=== PATIENT | female | born 1940 | race African-American/Black ===

== ENCOUNTER 2018-05-20 08:20 | Inpatient (IN) | payer OTHER, MEDICAID ==
[~2018-05-20] VITALS: Ht 162.6 cm; Wt 54.9 kg
[2018-05-20 09:11] LABS: *AMPHETAMINES SCREEN URINE NEGATIVE (NEGATIVE); *BENZODIAZEPINES SCREEN URINE NEGATIVE (NEGATIVE); *COCAINE SCREEN URINE NEGATIVE (NEGATIVE); OPIATES URINE SCREEN NEGATIVE (NEGATIVE); PHENCYCLIDINE URINE SCREEN NEGATIVE (NEGATIVE)
[2018-05-20 09:12] LABS: METHADONE URINE SCREEN NEGATIVE (NEGATIVE)
[2018-05-20 09:24] LABS: BASOPHILS % 0.4 % (0.0-2.0); EOSINOPHILS % 2.6 % (0.0-5.0); HEMATOCRIT. 30.5 % (36.0-48.0); HEMOGLOBIN. 10.3 g/dL (12.0-16.0); LYMPHOCYTES % 10.6 % (20.0-50.0); MEAN CORPUSCULAR VOLUME 88.9 fL (81.0-99.0); MEAN PLATELET VOLUME 8.7 fl (7.4-10.4); MONOCYTES % 7.8 % (2.0-8.0); NEUTROPHILS % 78.6 % (40.0-76.0); PLATELET 145 x1000/uL (130-400); RED BLOOD CELL COUNT 3.43 mill/uL (4.2-5.4)
[2018-05-20 09:25] LABS: CANNABINOID URINE SCREEN NEGATIVE (NEGATIVE)
[2018-05-20 09:28] LABS: CHLORIDE 106 mEq/L (98-107)
[2018-05-20 09:28] LABS: *BARBITURATES SCREEN URINE NEGATIVE (NEGATIVE)
[2018-05-20 09:31] LABS: PARTIAL THROMBOPLASTIN TIME 24.7 sec (23.4-31.0); PROTHROMBIN TIME 10.7 sec (9.4-11.6)
[2018-05-20 09:32] LABS: ETHANOL BLOOD < 10 mg/dL
[2018-05-20] MEDS ORDERED: DEXTROSE 50% WATER 50ML SYRINGE IV PRN (13:15)
[2018-05-20] MEDS: BLOOD SUGAR DIAGNOSTIC STRIP TEST SCH ×3 (13:16→20:50)
[2018-05-20] MEDS: INSULIN LISPRO 100 UNITS/ML SUBCUT SCH ×3 (13:20→20:49)
[2018-05-20 14:02] VITALS: BP 124/51
[2018-05-20] MEDS ORDERED: GLIP10TA10 PO (14:13)
[2018-05-20] MEDS ORDERED: ACAR25TA8 PO (14:13)
[2018-05-20] MEDS ORDERED: FURO40TA5 PO (14:13)
[2018-05-20] MEDS ORDERED: LOSA25TA12 PO (14:29)
[2018-05-20] MEDS ORDERED: MULT-1195 PO (14:29)
[2018-05-20] MEDS ORDERED: HYDR-4134 PO (14:29)
[2018-05-20] MEDS ORDERED: SPIR25TA6 PO (14:29)
[2018-05-20] MEDS ORDERED: SIMV40TA5 PO (14:29)
[2018-05-20] MEDS ORDERED: HYDR10SY15 PO (14:29)
[2018-05-20] MEDS ORDERED: CARV25TA47 PO (14:29)
[2018-05-20] MEDS ORDERED: CLOP75TA33 PO (14:29)
[2018-05-20] MEDS ORDERED: HYDROCODONE/ACETAMINOPHEN 10/325MG TABLET PO PRN (14:30)
[2018-05-20] MEDS ORDERED: IPRATROPIUM/ALBUTEROL 0.5-3(2.5)MG/3ML NEB INH PRN (14:30)
[2018-05-20] MEDS ORDERED: ACETAMINOPHEN 650MG/20.3ML UDC GT PRN (14:30)
[2018-05-20] MEDS ORDERED: ACETAMINOPHEN 650MG SUPP PR PRN (14:30)
[2018-05-20] MEDS ORDERED: ONDANSETRON HCL 4MG/2ML VIAL IV PRN (14:30)
[2018-05-20] MEDS ORDERED: HYDROCODONE/ACETAMINOPHEN 5/325MG TABLET PO PRN (14:30)
[2018-05-20 17:46] VITALS: BP 124/59
[2018-05-20] MEDS: ASPIRIN 81MG EC TABLET PO SCH (18:28)
[2018-05-20 20:05] VITALS: BP 125/57
[2018-05-20] MEDS: ACETAMINOPHEN 325MG TABLET PO PRN (20:49)
[2018-05-20] MEDS: SODIUM CHLORIDE 0.9% INJ 3ML FLUSH IVF SCH (22:00)
[2018-05-21] VITALS: BP 120/50
[2018-05-21 04:00] VITALS: BP 126/58
[2018-05-21] MEDS: ACETAMINOPHEN 325MG TABLET PO PRN (04:32)
[2018-05-21 05:48] LABS: BASOPHILS % 0.5 % (0.0-2.0); EOSINOPHILS % 4.7 % (0.0-5.0); HEMATOCRIT. 27.2 % (36.0-48.0); HEMOGLOBIN. 9.3 g/dL (12.0-16.0); LYMPHOCYTES % 27.3 % (20.0-50.0); MEAN PLATELET VOLUME 9.2 fl (7.4-10.4); MONOCYTES % 11.6 % (2.0-8.0); NEUTROPHILS % 55.9 % (40.0-76.0); PLATELET 135 x1000/uL (130-400); RED BLOOD CELL COUNT 3.09 mill/uL (4.2-5.4); RED CELL DISTRIBUTION WIDTH 14.3 % (11.6-14.6)
[2018-05-21] MEDS: SODIUM CHLORIDE 0.9% INJ 3ML FLUSH IVF SCH ×2 (06:00→14:38)
[2018-05-21 06:16] LABS: CHLORIDE 106 mEq/L (98-107)
[2018-05-21 06:38] LABS: LDL CHOLESTEROL 69 mg/dL (5-100)
[2018-05-21 06:40] LABS: HDL CHOLESTEROL 66 mg/dL (40-59)
[2018-05-21] MEDS: INSULIN LISPRO 100 UNITS/ML SUBCUT SCH ×2 (07:50→13:20)
[2018-05-21] MEDS: BLOOD SUGAR DIAGNOSTIC STRIP TEST SCH ×2 (07:53→12:59)
[2018-05-21 08:58] VITALS: BP 109/56
[2018-05-21] MEDS: ASPIRIN 81MG EC TABLET PO SCH (10:32)
[2018-05-21 12:33] VITALS: BP 141/54
[2018-05-21] MEDS ORDERED: CARVEDILOL 25MG TABLET PO SCH (13:30)
[2018-05-21] MEDS ORDERED: CLOPIDOGREL 75MG TABLET PO SCH (13:30)
[2018-05-21] MEDS ORDERED: GLIPIZIDE 10MG TABLET PO SCH (13:30)
[2018-05-21] MEDS ORDERED: ACARBOSE 25 MG PO SCH (13:30)
[2018-05-21] MEDS ORDERED: MEDICATION NOT ON FORMULARY EA (Clopidogrel Bisulfate (Clopidogrel) 75 MG) PO SCH (13:30)
[2018-05-21 15:37] VITALS: BP 138/68
[2018-05-21 16:00] VITALS: BP 139/68
== END 2018-05-21 16:22 | disposition home or self-care (01) | DRG 312 ==
LOC: ER 08:20 → 6WST 08:21 → EDBEDREQ 11:19 → EDBEDREQTM 11:19 → ENRESERV 11:56
PROVIDERS: ADMIT Family Medicine; ATTEND Family Medicine
DX: R55 Syncope and collapse (principal); S09.90XA Unspecified injury of head, initial encounter; I10 Essential (primary) hypertension; E11.9 Type 2 diabetes mellitus without complications; I11.9 Hypertensive heart disease without heart failure; W18.39XA Other fall on same level, initial encounter; I25.10 Atherosclerotic heart disease of native coronary artery without angina pectoris; I45.81 Long QT syndrome; R11.2 Nausea with vomiting, unspecified; I25.2 Old myocardial infarction; Z82.49 Family history of ischemic heart disease and other diseases of the circulatory system; Z86.73 Personal history of transient ischemic attack (TIA), and cerebral infarction without residual deficits; Y93.89 Activity, other specified; Y92.89 Other specified places as the place of occurrence of the external cause; Y99.8 Other external cause status
CPT/HCPCS: 36415; 70450; 71045; 80053; 80061; 80305; 82962; 83690; 83735; 83880; 84484; 85018; 85025; 85610; 85730; 93005; 99285; G0482; J1815